=== PATIENT | female | born 1995 | race Caucasian/White ===

== ENCOUNTER 2021-08-08 08:48 | Outpatient (CLI) | payer OTHER, SELFPAY ==
--- NOTE | ~2021-08-08 | US_ITS ---
EXAMINATION: US arterial ankle brachial ind EXAM DATE: 08/08/2021 09:33 INDICATION: R09.89 - Other specified symptoms and signs involving the... Decreased pedal pulses. TECHNIQUE: Segmental pressures and plethysmographic and Doppler waveforms of the brachial and lower e xtremity arteries were obtained. There is no prior study for comparison. FINDINGS: Right and left brachial artery pressures of 115 mm Hg and 127 mm Hg, respectively, are concordant (no rmal difference <= 30 mmHg). RIGHT LEG: The ankle-brachial index (ROSA) is 1.08 (normal >= 0.9-1). The great toe-brachial index (TBI) is 0.82 (normal >= 0.65). The lower extremity ratios, segmental pressure gradients as follows; Dorsalis pedis: 1.07 (136 mmHg). Posterior tibial: 1.08 (137 mmHg). (Normal gradients <= 20-30 mmHg between adjacent levels on the same leg or the same levels on the two legs). Arterial waveforms are biphasic DP, monophasic PT. LEFT LEG: The ankle-brachial index (ROSA) is 1.09 (normal >= 0.9-1). The great toe-brachial index (TBI) is 0.82 (normal >= 0.65). The lower extremity ratios, segmental pressure gradients as follows; Dorsalis pedis: 0.98 (125 mmHg). Posterior tibial: 1.09 (138 mmHg). (Normal gradients <= 20-30 mmHg between adjacent levels on the same leg or the same levels on the two legs). Arterial waveforms are biphasic. IMPRESSION: 1. Right ankle-brachial index 1.08, normal. 2. Left ankle-brachial index 1.09, normal. 3. Segmental pressures as above. Reviewed, dictated and finalized at location A. ARCH EXECUTIVE
== END 2021-08-08 08:49 | disposition home or self-care (01) ==
LOC: ANHIMG 08:53
PROVIDERS: PCP Family Medicine; Visit Provider Physician Assistant Medical
DX: R09.89 Other specified symptoms and signs involving the circulatory and respiratory systems (principal); L81.9 Disorder of pigmentation, unspecified
CPT/HCPCS: 93922

== ENCOUNTER 2022-11-24 17:54 | Emergency (ER) | payer BC, SELFPAY ==
--- NOTE | ~2022-11-24 | XR_ITS ---
Right Hand Technique: PA, oblique, and lateral views were obtained. Clinical History: Pain, limited range of motion Findings: There is suspected dorsal dislocation of the first metacarpophalangeal joint. No fracture i dentified. Remaining osseous structures demonstrate normal alignment. Remaining joint spaces are pres erved. Soft tissues are unremarkable. Impression: Suspected dorsal dislocation at the first metacarpophalangeal joint. Consider true lateral view of th e thumb to better assess alignment. Reviewed, dictated and finalized at location M. Impression: Suspected dorsal dislocation at the first metacarpophalangeal joint. Consider t rue lateral view of the thumb to better assess alignment.
[2022-11-24 18:05] VITALS: BP 143/94; PULSE 90; RESP 16; TEMP 36.4; O2SAT 99
--- NOTE | 2022-11-24 18:22 | ED.UPPEXIN ---
HPI - Extremity Injury (Upper) General Chief Complaint: Extremity Injury, Upper Stated Complaint: right hand pain Time Seen by Provider: 11/24/22 18:15 Source: patient Mode of arrival: ambulatory Limitations: no limitations History of Present Illness HPI narrative: 27-year-old female presents today with complaint of right thumb pain. Reports that she cannot move it. Reports that she went out drinking and was intoxicated and does not remember what happened. Woke up late this afternoon and noticed the pain. Patient is vomiting due to alcohol consumption. Range of motion decreased due to pain, distal neurovascularly intact. All systems reviewed and negative except as noted above. Related Data Home Medications Medication Instructions Recorded Confirmed desogestrel-e.estradiol 0.15 1 tablet PO DAILY 04/09/21 11/24/22 mg-0.02 mg(21)/e.estrad 0.01 mg(5) tablet (Viorele (28)) bupropion HCl 300 mg 24 hr tablet, 300 mg PO QAM 04/10/22 11/24/22 extended release (Wellbutrin XL) cholecalciferol (vitamin D3) 25 25 mcg PO DAILY 08/27/22 11/24/22 mcg (1,000 unit) capsule Allergies Allergy/AdvReac Type Severity Reaction Status Date / Time No Known Allergies Allergy Verified 11/24/22 17:58 Review of Systems Review of Systems: CONSTITUTIONAL: Denies fever, chills, or sweats. EYES: Denies visual changes, redness, or discharge. ENT: Denies rhinorrhea, congestion, sore throat, or otalgia. CARDIOVASCULAR: Denies chest pain, palpitations, or edema. RESPIRATORY: Denies cough or dyspnea. GASTROINTESTINAL: Denies abdominal pain, nausea, vomiting, or diarrhea. GENITOURINARY: Denies dysuria or hematuria. SKIN: Denies rash or itching. MUSCULOSKELETAL: Reports pain and decreased range of motion to right thumb. NEUROLOGIC: Denies headache, numbness, or weakness. PSYCHIATRIC: Denies anxiety or depression. All other systems reviewed are negative, except as documented in HPI. [facility] Past Medical History Medical History Attention deficit disorder (ADD) without hyperactivity BMI 28.0-28.9,adult BMI 29.0-29.9,adult BMI 31.0-31.9,adult BMI 32.0-32.9,adult BMI greater than 30 Depression with anxiety Insulin resistance Spasm of lumbar paraspinous muscle Tobacco abuse Family History Family History Grandparent Diabetes mellitus Mother Family history of rheumatoid arthritis Father No problems noted. Sibling No problems noted. Social History Social History Smoking status: Never smoker Second hand tobacco smoke exposure: No Alcohol intake: current Substance use: current Substance use type: marijuana Lack of Transportation: No Lack of Food: Never True Current Housing: I Have Housing Concerned About Future Housing: No Difficulty Paying Gas/Electric Bills: No Difficulty Paying for Meds: No Currently Unemployed: No Education: Bachelor's Degree Difficulty w/ Childcare or Family Care: No Living arrangements: alone Occupation/Education: occupation Additional occupation/education comments: day care Gender identity (if verbalized by the patient): Female Comments At time of signature, agree with nursing past medical, surgical, social and family history. There is no relevant family history pertinent to the presenting complaint. Exam Narrative: GENERAL: This is a well-nourished, well-developed patient, in no apparent distress. HEAD: normocephalic, atraumatic. EYES: PERRL. Sclera clear/white. Vision is grossly intact. EARS: External ears normal NOSE: External nose normal NECK: Neck supple, non-tender without lymphadenopathy, masses or thyromegaly. CARDIOVASCULAR: Regular rate and rhythm without murmurs, gallops, or rubs. RESPIRATORY: Clear to auscultation. Breath sounds equal bilaterally. No wheezes, rales, or
[2022-11-24] MEDS: ONDANSETRON HCL ODT 4 MG TABLET SUBLINGUAL (18:26)
== END 2022-11-24 18:52 | disposition home or self-care (01) ==
PROVIDERS: Emergency Provider Nurse Practitioner Family; PCP Family Medicine
DX: S63.114A Dislocation of metacarpophalangeal joint of right thumb, initial encounter (principal); F41.9 Anxiety disorder, unspecified; F32.A Depression, unspecified; X58.XXXA Exposure to other specified factors, initial encounter
CPT/HCPCS: 73130; 99213; A9270; G0463

== ENCOUNTER 2022-11-24 19:21 | Emergency (ER) | payer BC, SELFPAY ==
--- NOTE | ~2022-11-24 | XR_ITS ---
PA, oblique, and lateral views of the right thumb CLINICAL HISTORY: Post reduction COMPARISON: 11/24/2022 at 7:34 PM FINDINGS: Previously noted first metacarpophalangeal joint dislocation has been successfully reduced. Osseous alignment is now anatomic. No fracture identified. No dislocation seen currently. Soft tissu es are unremarkable. IMPRESSION: Successful reduction of previously noted first MCP joint dislocation. No fracture or dislocation seen currently. Reviewed, dictated and finalized at location . IMPRESSION: Successful reduction of previously noted first MCP joint dislocation. No fractu re or dislocation seen currently.
--- NOTE | ~2022-11-24 | XR_ITS ---
Right Hand Technique: PA, oblique, and lateral views were obtained. Clinical History: Injury COMPARISON: 11/24/2022 at 6:09 PM Findings: There is dorsal dislocation at the first metacarpophalangeal joint. No fracture identified. Remaining osseous structures and joint spaces are intact. Soft tissues are unremarkable. Impression: Dorsal dislocation at the first metacarpophalangeal joint. No fracture identified. Reviewed, dictated and finalized at location . Impression: Dorsal dislocation at the first metacarpophalangeal joint. No fracture identified.
[2022-11-24 19:26] VITALS: BP 128/86; PULSE 77; RESP 16; TEMP 36.3; O2SAT 99
--- NOTE | 2022-11-24 23:06 | ED.GENADULT ---
HPI - General Adult General Chief complaint: Extremity Injury, Upper Stated complaint: right thumb dislocation? Time Seen by Provider: 11/24/22 22:50 History of Present Illness HPI narrative: Patient is a 27-year-old female referred from urgent care after she was found to have a thumb dislocation. Patient is unsure what happened, states she was intoxicated last evening and woke up with a deformity to her right thumb. She is right-handed. She had pain and swelling at the thumb ever since. Plain films at the urgent care revealed a dislocation and the nurse practitioner did not feel comfortable reducing it there so she referred her to the ED. She does report nausea all day which she attributes to hangover. Related Data Home Medications Medication Instructions Recorded Confirmed desogestrel-e.estradiol 0.15 1 tablet PO DAILY 04/09/21 11/24/22 mg-0.02 mg(21)/e.estrad 0.01 mg(5) tablet (Viorele (28)) bupropion HCl 300 mg 24 hr tablet, 300 mg PO QAM 04/10/22 11/24/22 extended release (Wellbutrin XL) cholecalciferol (vitamin D3) 25 25 mcg PO DAILY 08/27/22 11/24/22 mcg (1,000 unit) capsule Allergies Allergy/AdvReac Type Severity Reaction Status Date / Time No Known Allergies Allergy Verified 11/24/22 19:26 Review of Systems Review of Systems: Gen.: Denies fevers or chills Eyes: Denies eye pain or visual change ENT: Denies congestion Respiratory: Denies shortness of breath or cough CV: Denies chest pain or palpitations GI: Reports nausea denies burning, urgency, frequency or hematuria Musculoskeletal: Reports right thumb pain Neuro: Denies numbness, tingling, weakness or focal weakness Skin: Denies rash Except as documented, all other systems reviewed and negative [facility] Past Medical History Medical History Attention deficit disorder (ADD) without hyperactivity BMI 28.0-28.9,adult BMI 29.0-29.9,adult BMI 31.0-31.9,adult BMI 32.0-32.9,adult BMI greater than 30 Depression with anxiety Insulin resistance Spasm of lumbar paraspinous muscle Tobacco abuse Family History Family History Grandparent Diabetes mellitus Mother Family history of rheumatoid arthritis Father No problems noted. Sibling No problems noted. Social History Social History Smoking status: Never smoker Second hand tobacco smoke exposure: No Alcohol intake: current Substance use: current Substance use type: marijuana Lack of Transportation: No Lack of Food: Never True Current Housing: I Have Housing Concerned About Future Housing: No Difficulty Paying Gas/Electric Bills: No Difficulty Paying for Meds: No Currently Unemployed: No Education: Bachelor's Degree Difficulty w/ Childcare or Family Care: No Living arrangements: alone Occupation/Education: occupation Additional occupation/education comments: day care Gender identity (if verbalized by the patient): Female Exam Narrative: Gen: Alert, oriented, no acute distress Eyes: EOMI, no icterus Pulm: Respirations even and unlabored, symmetric thorax expansion, no audible stridor or visible cyanosis CV: Regular rate per telemetry GI: No distension, no voluntary/involuntary guarding Neuro: AOx4, moves all extremities without apparent difficulty or weakness, follows commands MSK: Deformity noted to the right thumb. Neurovascular intact distal to the deformity. Skin: No jaundice, no visible bruising, rashes, lesions or wounds on exposed skin Psych: Normal mood/affect, insight/judgement good, adequate fund of knowledge, recent/remote memory intact Course Vital Signs Vital signs: Vital Signs Temperature 97.3 F L 11/24/22 19:26 Pulse Rate 77 11/24/22 19:26 Respiratory Rate 16 11/24/22 19:26 Blood Pressure 128/86 11/24/22 19:26 Pulse Oximetry 99
[2022-11-24] MEDS: LIDOCAINE HCL 1% LOCAL INJ 10 ML VIAL INFILTRATE (23:14)
[2022-11-24] MEDS: ONDANSETRON HCL ODT 4 MG TABLET PO (23:22)
[2022-11-24 23:25] VITALS: BP 123/79; PULSE 80; RESP 18; TEMP 36.6; O2SAT 99
== END 2022-11-24 23:26 | disposition home or self-care (01) ==
PROVIDERS: Emergency Provider Physician Assistant; PCP Family Medicine
DX: S63.044A Dislocation of carpometacarpal joint of right thumb, initial encounter (principal); X58.XXXA Exposure to other specified factors, initial encounter
CPT/HCPCS: 26700; 73130; 73140; 81025; 99285; A9270

== ENCOUNTER 2022-12-10 09:32 | Emergency (ER) | payer BC, SELFPAY ==
[2022-12-10 09:44] VITALS: BP 131/93; PULSE 83; RESP 16; TEMP 36.6; O2SAT 99
--- NOTE | 2022-12-10 10:07 | ED.EYEPROB ---
HPI - Eye Problem General Chief complaint: Eye Problems Stated complaint: Eyes Irritation Time Seen by Provider: 12/10/22 09:50 Source: patient Mode of arrival: ambulatory Limitations: no limitations History of Present Illness HPI Narrative: Mercy is a 27-year-old female patient presenting to the clinic today with complaints of bilateral eye irritation x2 days. She reports she has been putting some polymyxin eyedrops that her sister had in her eyes however this does not seem to be helping. Has redness and swelling to bilateral eyes with yellow mucopurulent discharge. States that the eyes are itchy and painful. No known injury or foreign body in her eyes. Also reports that she has had ear pain and has been having a lot of sinus pressure and a productive cough with green phlegm and blowing out green nasal discharge x2 weeks Related Data Home Medications Medication Instructions Recorded Confirmed desogestrel-e.estradiol 0.15 1 tablet PO DAILY 04/09/21 12/10/22 mg-0.02 mg(21)/e.estrad 0.01 mg(5) tablet (Viorele ()) bupropion HCl 300 mg 24 hr tablet, 300 mg PO QAM 04/10/22 12/10/22 extended release (Wellbutrin XL) cholecalciferol (vitamin D3) 25 25 mcg PO DAILY 08/27/22 12/10/22 mcg (1,000 unit) capsule Allergies Allergy/AdvReac Type Severity Reaction Status Date / Time No Known Allergies Allergy Verified 12/03/22 11:21 Review of Systems Review of Systems: Pertinent positives per HPI. Patient denies any fever, chills, rash, headache, visual changes, dizziness, cough, runny nose, sore throat, shortness of breath, chest pain, palpitations, nausea, vomiting, diarrhea, constipation, abdominal pain, or any urinary issues. [facility] Past Medical History Medical History Attention deficit disorder (ADD) without hyperactivity BMI 28.0-28.9,adult BMI 29.0-29.9,adult BMI 31.0-31.9,adult BMI 32.0-32.9,adult BMI greater than 30 Depression with anxiety Insulin resistance Spasm of lumbar paraspinous muscle Tobacco abuse Family History Family History Grandparent Diabetes mellitus Mother Family history of rheumatoid arthritis Father No problems noted. Sibling No problems noted. 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 There is no relevant family history pertinent to the patient complaint. Exam Narrative: General: Well-developed, well nourished, in no apparent distress Head: Normocephalic, atraumatic Eyes: Pupils equally round and reactive to light bilaterally, EOM intact, bilateral sclera and conjunctive injected with yellow mucopurulent discharge, bilateral lids swelling noted. Ears: TMs intact, dull, red, mild bulging, ear canals clear, no drainage, grossly hearing normal. Nose: Nares patent, green nasal discharge, moderate inflammation, maxillary and frontal sinus tenderness. Mouth: Oropharynx without lesions or masses, good dentition, MMM. Postnasal drip Neck: Supple, trachea midline, no enlargement of anterior or posterior cervical nodes, no thyr
== END 2022-12-10 10:18 | disposition home or self-care (01) ==
PROVIDERS: Emergency Provider Nurse Practitioner Family; PCP Family Medicine
DX: J01.90 Acute sinusitis, unspecified (principal); H10.33 Unspecified acute conjunctivitis, bilateral; F12.90 Cannabis use, unspecified, uncomplicated
CPT/HCPCS: 99213; G0463

== ENCOUNTER 2023-06-24 07:02 | Outpatient (CLI) | payer BC, SELFPAY ==
[2023-06-24 07:34] LABS: Basophils Absolute Auto 0.1 K/mm3 (0.0-0.1); Basophils Percent Auto 0.6 % (0.2-1.2); Eosinophils Absolute Auto 0.3 K/mm3 (0-0.3); Eosinophils Percent Auto 2.9 % (0-4.4); Hematocrit 42.8 % (37.0-47.0); Hemoglobin 14.9 g/dL (12.0-15.0); Immature Granulocyte Absolute 0.03 K/mm3 (0.00-0.031); Immature Granulocyte Percent A 0.4 % (0-0.5); Lymphocytes Absolute Auto 1.98 K/mm3 (0.9-3.2); Lymphocytes Percent Auto 23.3 % (18.3-44.2); Mean Corpuscular HGB Conc 34.8 g/dl (32-36); Mean Corpuscular Hemoglobin 31.5 pg (26-34); Mean Corpuscular Volume 90.5 fl (80-100); Mean Platelet Volume 8.9 fl (7.4-10.4); Monocytes Absolute Auto 0.4 K/mm3 (0.1-0.6); Monocytes Percent Auto 4.3 % (2.6-8.5); Neutrophils Absolute Auto 5.8 K/mm3 (1.3-6.7); Neutrophils Percent Auto 68.5 % (45.5-73.1); Platelet Count Result 353 k/mm3 (150-375); Red Blood Count 4.73 M/mm3 (4.2-5.4); Red Cell Distribution Width 11.8 % (11.5-14.5); White Blood Count 8.5 K/mm3 (4.5-10.0)
[2023-06-24 07:43] LABS: Alanine Aminotransferase 22 U/L (6-35); Albumin Level 4.4 g/dL (3.5-5.1); Alkaline Phosphatase 60 U/L (38-126); Anion Gap 5 mmol/L (8-16); Aspartate Amino Transferase 27 U/L (14-36); Bilirubin,Total 0.5 mg/dL (0.2-1.3); Blood Urea Nitrogen 14 mg/dL (7-17); Calcium 9.2 mg/dL (8.4-10.2); Carbon Dioxide 27 mmol/L (22-30); Chloride 103 mmol/L (98-107); Cholesterol 194 mg/dL (0-200); Estimated Glomerular Filt Rate > 60; Glucose 92 mg/dL (65-110); HDL Direct 76 mg/dL; Potassium 4.4 mmol/L (3.4-5.0); Sodium 135 mmol/L (137-145); Triglycerides 193 mg/dL (<150)
[2023-06-24 07:55] LABS: LDL Cholesterol Direct 94 mg/dL
[2023-06-24 08:16] LABS: Vitamin D 25 Hydroxy 29.3 ng/mL
[2023-06-26 06:16] LABS: Insulin Level Total 13.3 uIU/mL (<=18.4)
[2023-07-01 21:01] LABS: Free Insulin 6.7 uIU/mL (1.5-14.9)
== END 2023-06-24 07:03 | disposition home or self-care (01) ==
LOC: ANHLAB 07:04
PROVIDERS: PCP Family Medicine; Visit Provider Physician Assistant Medical
DX: F50.81 Binge eating disorder (principal); R35.0 Frequency of micturition; E78.5 Hyperlipidemia, unspecified; E55.9 Vitamin D deficiency, unspecified; E88.819 Insulin resistance, unspecified
CPT/HCPCS: 36415; 80053; 80061; 82306; 83525; 83527; 84443; 85025

== ENCOUNTER 2025-07-23 08:08 | Outpatient (CLI) | payer OTHER, SELFPAY ==
--- OUTSIDE RECORDS SUMMARY | 1999-07-26 10:00 | XMS_ITS | Continuity of Care Document ---
Author Organization [facility] Address [address] [place] [address] Phone Care Team Providers Care Flash Developer Name Role Phone Unavailable Unavailable Unavailable Advance Directives Directive Yes / No Effective Date File Name No Information Encounters Encounter Description Practice Location Reason(s) For Visit Diagnoses Date Provider Providers Copied on Encounter [facility], [address] [place], [place], [id number], [place] tel:[phone] [facility] No Information 9 No Information Family History Family Member Type Diagnosis Age At Onset No Information Payers Payer name Insurance type Covered libertarian ID Authoriza tion(s) No Information Social History Type Description Quantity Date Captured Comments Sex Female Smoking Status No Information Chief Complaint And Reason For Visit No Information Reason For Referral Reason For Referral No Information History Of Present Illness Encounter Date Complaint History Of Prese nt Illness No Information Functional Status Date Functional Assessmen t No Information Instructions Date Instruction Additional Infor mation No Information Assessments Type Assessment Date No Information Patient Care Teams Name Effective Dates (start - stop) Status Members No Information
--- OUTSIDE RECORDS SUMMARY | 2025-07-23 08:15 | XMS_ITS | Clinical Summary ---
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 Gender Identity Not on file Sexual Orientation Not on file Plan of Treatment Health Maintenance Due Date Last Done Comments Hepatitis C Virus (HCV) Screening 1995 Hepatitis B Immunization (1 of 3 - 19+ 3-dose series) 2014 Human Papillomavirus (HPV) Immunization (1 - 3-dose SCDM series) 2022 Influenza Immunization (#1) 2025 SARS-COV-2 Immunization ( season) 2025 Respiratory Syncytial Virus (RSV) Immunization (Adult) (1 - 1-dose 75+ series) 2070 DTaP/Tdap/Td Immunization Discontinued 03/02/2020 TdaP Immunization Completed 03/02/2020 Meningococcal Immunization (ACWY) Aged Out No longer eligible based on patient's age to complete this topic Pneumococcal Immunization Combined Aged Out No longer eligible based on patient's age to complete this topic Rotavirus Immunization Aged Out No lo nger eligible based on patient's age to complete this topic
--- OUTSIDE RECORDS SUMMARY | 2025-07-23 08:15 | XMS_ITS | Patient Health Record ---
Author Organization [facility] Address [address] [place] [address] Support Name Relationship Address Phone DRE ASHLEY Emergency Contact Unknown Unava ilable TAPAN ASHLEY Guarantor Unknown [phone] Reason For Referral No Information Medications Medication SIG (Take, Route, Frequency, Duration) Notes Start Date End Date Status Fluconazole 150 MG Tablet Oral 11/04/2023 Active buPROPion HCl ER (XL) 300 MG Tablet Extended Release 24 Hour Oral 11/04/2023 Active Phentermine HCl 37.5 MG Capsule Oral 11/04/2023 Active Ergocalciferol 1.25 MG (49159 UT) Capsule Oral 11/04/2023 Active Vraylar 1.5 mg Capsule Oral 11/04/2023 Active metroNIDAZOLE 0.75 % Gel Vaginal 11/04/2023 Active DULoxetine HCl 60 MG Capsule Delayed Release Particles Oral 11/04/2023 Ac tive Amphetamine-Dextroamphet ER 10 MG Capsule Extended Release 24 Hour Oral 11/04/2023 Active Viorele 0.15-0.02/0.01 MG (/) Tablet Oral 11/04/2023 Active Vyvanse 40 MG Capsule Oral 11/04/2023 Active buPROPion HCl ER (XL) 150 MG Tablet Extended Release 24 Hour Oral 11/04/2023 Active busPIRone HCl 10 MG Tablet Oral 11/04/2023 Active Immunizations Vaccine Route Administration Date Status Comme nts Pfizer Biontech Covid-19 Vac cine 2nd dose Unknown 02/04/2021 Administered Pfizer Biontech Covid-19 Vac cine 2nd dose Unknown 04/06/2021 Administered Pfizer Biontech Covid-19 Vac cine 2nd dose Unknown 10/24/2021 Administered Social History Social History Additional Details Category Social Info Options Details Migrated Social History Migrated Social History Alcohol Intake: Moderate 12/26/2021,Tobacco Years: Never smoker 11/06/2021 Plan Of Treatment No Information Insurance Providers Payer Name Payer Address Payer Phone Subscriber Number Group Number Insured Name Patient Relationship to Insured Coverage Start Date Coverage End Date [employer] [employer] [address] [place] [address] [id number] TAPAN ASHLEY Self - patient is the insured Medical (General) History Surgical History Surgery Date(Month/Year) Any surgical history Tonsilectomy/adenoids 11/04/2006
[2025-07-23 08:47] LABS: Hematocrit 41.2 % (37.0-47.0); Hemoglobin 14.2 g/dL (12.0-15.0); Immature Granulocyte Percent A 0.3 % (0-0.5); Lymphocytes Absolute Auto 2.13 K/mm3 (0.9-3.2); Mean Corpuscular HGB Conc 34.5 g/dl (32-36); Mean Corpuscular Hemoglobin 31.0 pg (26-34); Mean Corpuscular Volume 90.0 fl (80-100); Nucleated Red Blood Cells Absolute Auto 0.000 K/mm3 (0.0-0.012); Nucleated Red Blood Cells Perc 0.0 % (0.0-0.2); Platelet Count Result 299 k/mm3 (150-375); Red Blood Count 4.58 M/mm3 (4.2-5.4); White Blood Count 7.8 K/mm3 (4.5-10.0)
[2025-07-23 09:28] LABS: Alanine Aminotransferase 25 U/L (6-35); Albumin Level 4.1 g/dL (3.5-5.1); Alkaline Phosphatase 55 U/L (38-126); Anion Gap 8 mmol/L (4-12); Aspartate Amino Transferase 39 U/L (14-36); Bilirubin,Total 0.8 mg/dL (0.2-1.3); Blood Urea Nitrogen 9 mg/dL (7-17); Calcium 8.8 mg/dL (8.4-10.2); Carbon Dioxide 24 mmol/L (22-30); Chloride 105 mmol/L (98-107); Cholesterol 208 mg/dL (0-200); Estimated Glomerular Filt Rate > 60; Glucose 82 mg/dL (65-110); HDL Direct 56 mg/dL; Potassium 3.6 mmol/L (3.4-5.0); Sodium 137 mmol/L (137-145); Total Protein 7.2 g/dL (6.3-8.2); Triglycerides 138 mg/dL (<150)
[2025-07-23 10:03] LABS: Thyroid Stimulating Hormone 1.390 uIU/mL (0.465-4.680)
== END 2025-07-23 08:09 | disposition home or self-care (01) ==
LOC: ANHLAB 08:13
PROVIDERS: PCP Family Medicine; Visit Provider Physician Assistant Medical
DX: F41.8 Other specified anxiety disorders (principal); F50.81 Binge eating disorder; R35.0 Frequency of micturition; E78.5 Hyperlipidemia, unspecified; E88.810 Metabolic syndrome
CPT/HCPCS: 36415; 80053; 80061; 83525; 84443; 85025